=== PATIENT | male | born 1970 | race Caucasian/White ===

== ENCOUNTER 2020-11-06 05:54 | Emergency (ER) | payer OTHER ==
[~2020-11-06] VITALS: Ht 177.8 cm; Wt 95.3 kg
[~2020-11-06 05:54] MED LIST: KEFLEX500 MG PO; TRAMADOL 50 MG50 MG PO
[2020-11-06] MEDS ORDERED: CIPRO HC OTIC S10 ML OTIC (06:49)
[2020-11-06] MEDS ORDERED: HYDROCODON-ACE1 EAC8 PO (06:49)
[2020-11-06] MEDS ORDERED: MECLIZINE HCL25 MG PO (06:50)
[2020-11-06 07:09] VITALS: BP 158/72
== END 2020-11-06 07:09 | disposition home or self-care (01) ==
LOC: M.ERS 05:54
DX: H72.91 Unspecified perforation of tympanic membrane, right ear (principal); Z20.822 Contact with and (suspected) exposure to COVID-19